=== PATIENT | male | born 1945 | race Caucasian/White ===

== ENCOUNTER 2017-03-25 23:12 | Emergency (ER) | payer MEDICARE ==
[~2017-03-25 23:12] MED LIST: ASPIR 8181 MG PO; DULERA 100/58.8 GM IH; GUAIFENESIN400 MG PO; HYDROCORTISONE 2.5% TP; LAMOTRIGINE150 MG PO; LASIX DPS20 MG PO; LEVETIRACETAM250 MG PO; LIPITOR DPS40 MG PO; LISINOPRIL5 MG PO; NITROGLYCERIN0.4 MG SL; OMEPRAZOLE20 MG PO; RANEXA500 MG PO; SODIUM CHLORIDE NS; TIMOPTIC 0.5% DP5 ML OU
--- NOTE | 2017-03-26 19:08 | ER ---
ADMIT: 03/25/2017 RM/LOC: ER [facility] MR#: [id number] [address] [address] RACHID KIMBALL [address] [place] [id number] Emergency Room Report SEX: M AGE: 72 : 1945 DATE: 03/25/2017 HISTORY OF PRESENT ILLNESS: The patient is a 72-year-old male with past medical history of coronary artery disease, status post triple bypass more than 5 years ago; hypertension; and CVA, came to the ER with chief complaint of left anterior chest pain which started after eating supper and increases with palpation over the left anterior chest and deep breathing. The patient states pain is aching and is very different from previous heart attack pain. The patient took Mylanta at home, which did not change the pain. The patient is taking baby aspirin and is already on the blood thinners. The patient denies shortness of breath and states that in June of 2016, he had an angiogram which was negative for any obstruction in the cardiac vessels. PHYSICAL EXAMINATION: VITAL SIGNS: The patient has blood pressure of 185/69 with heart rate of 82 and respiratory rate of 18 and O2 saturation of 98% on room air and temperature was 96.4. GENERAL: The patient did not look to be in pain or distress. Head and NECK: Noncontributory. There is no bruit in the neck and there is no murmur extending to neck. CHEST: Clear bilaterally to auscultation. HEART: Normal S1, S2 without any gallops or murmurs. ABDOMEN: Soft. Abdomen is also nontender and there is no pulsating mass in the abdomen. EXTREMITIES: Normal peripheral pulses, which are also equal. NEUROLOGICAL: The patient has a slightly slow speech, but is oriented to person, place, and time, is residual from the previous CVA. The rest of the physical exam is noncontributory. EMERGENCY ROOM COURSE: The patient was given aspirin p.o. EKG did not show any ST or T changes or arrhythmia and was negative for ischemia. Cardiac enzymes were negative with one set troponin. The patient's pain was significantly resolved and stated that he does not want nitroglycerin sublingual. Considering the patient's risk factors, the [facility], Dr. Mckinnon was contacted and he agreed that we can proceed both ways either admitting the patient for observation or the patient could be discharged with strict return precautions. I talked to the patient, and I ADMIT: 03/25/2017 RM/LOC: [facility] MR#: [id number] [address] [place] [id number] [place] [address] Emergency Room Report SEX: M AGE: 72 : 1945 explained that there is slight chance of the pain to be related to the cardiac problem and in these situations, there is no other way for us to recognize unless we get the patient admitted for observation. The patient states that he believes that the pain is very different from previous pain, and he believes that the pain is just chest wall pain and he prefers strictly to go home and follow up with the primary care doctor. The patient was given the cons and pros and he was told that he is more than welcome to come back if there are any questions or concerns. The patient acknowledged he understood all the risks and benefits, and he prefers to go home and follow up with the primary doctor. The patient is a very nice gentleman and he did not look to be in the pain or discomfort at the moment, and the patient was discharged to home. Tylor Molina MD/ lon JOB #: [id number] CC: Tylor Molina MD, Attending Physician Blake Perla MD, Family Physician
== END 2017-03-26 01:06 | disposition home or self-care (01) ==
LOC: ER 23:12
DX: R07.9 Chest pain, unspecified (principal); I10 Essential (primary) hypertension; I25.2 Old myocardial infarction; Z86.73 Personal history of transient ischemic attack (TIA), and cerebral infarction without residual deficits; Z95.1 Presence of aortocoronary bypass graft; I25.10 Atherosclerotic heart disease of native coronary artery without angina pectoris; Z79.51 Long term (current) use of inhaled steroids; Z79.82 Long term (current) use of aspirin; Z79.899 Other long term (current) drug therapy

== ENCOUNTER 2017-03-26 12:16 | Emergency (ER) | payer MEDICARE ==
--- NOTE | 2017-04-12 08:17 | ER ---
ADMIT: 03/26/2017 RM/LOC: ER [facility] MR#: [id number] [id number] [facility] [id number] RACHID KIMBALL [address] [place] [id number] Emergency Room Report SEX: M AGE: 72 : 1945 DATE: 03/26/2017 ADDENDUM: A 72-year-old white male coming with kind of epigastric pain, also pain on palpation. GI cocktail was taken away. We did get lab on him. CBC, chemistry, troponin, EKG, and chest x-ray all negative. We are going to have him discharge. Continue medications and follow up with the [facility]. CONDITION ON DISCHARGE: Good. Kai Sevilla MD/ lon JOB #: [id number] CC: Kai Sevilla MD, Attending Physician [facility] Physician, Family Physician
== END 2017-03-26 15:10 | disposition home or self-care (01) ==
LOC: ER 12:16
DX: K21.9 Gastro-esophageal reflux disease without esophagitis (principal); I10 Essential (primary) hypertension; E78.5 Hyperlipidemia, unspecified; I25.10 Atherosclerotic heart disease of native coronary artery without angina pectoris; Z88.1 Allergy status to other antibiotic agents